=== PATIENT | male | born 1965 | race Caucasian/White ===

== ENCOUNTER 2016-10-12 14:04 | Emergency (ER) | payer MEDICAID ==
[~2016-10-12] VITALS: Ht 172.7 cm; Wt 58.0 kg
[2016-10-12 14:06] VITALS: BP 136/82
== END 2016-10-12 16:13 | disposition home or self-care (01) ==
LOC: ED 16:07
DX: S40.012A Contusion of left shoulder, initial encounter (principal); S60.212A Contusion of left wrist, initial encounter; S60.222A Contusion of left hand, initial encounter; L03.811 Cellulitis of head [any part, except face]; L03.115 Cellulitis of right lower limb; X50.1XXA Overexertion from prolonged static or awkward postures, initial encounter; Y93.89 Activity, other specified; Y92.89 Other specified places as the place of occurrence of the external cause; Y99.8 Other external cause status
CPT/HCPCS: 29125

== ENCOUNTER 2018-02-13 05:11 | Emergency (ER) | payer MEDICAID ==
[~2018-02-13] VITALS: Ht 172.7 cm; Wt 58.0 kg
[2018-02-13 05:19] VITALS: BP 105/73
[2018-02-13] MEDS ORDERED: ACETAMINOPHEN 325 MG TABLET ONE (05:56)
[2018-02-13] MEDS ORDERED: ACETAMINOPHEN 325 MG TABLET PO ONE (06:00)
== END 2018-02-13 08:20 | disposition home or self-care (01) ==
LOC: ED 07:47
DX: S43.402A Unspecified sprain of left shoulder joint, initial encounter (principal); S63.502A Unspecified sprain of left wrist, initial encounter; W01.0XXA Fall on same level from slipping, tripping and stumbling without subsequent striking against object, initial encounter; Y93.89 Activity, other specified; Y92.009 Unspecified place in unspecified non-institutional (private) residence as the place of occurrence of the external cause; Y99.8 Other external cause status
CPT/HCPCS: 29260; 99284

== ENCOUNTER 2019-08-24 12:48 | Emergency (ER) | payer MEDICAID ==
[~2019-08-24] VITALS: Ht 172.7 cm; Wt 61.4 kg
[2019-08-24 12:49] VITALS: BP 148/98
--- NOTE | 2019-08-24 13:03 | NUR ---
PT AMBULATED HERE FROM, FROM HALF-WAY. PT WITH C/O HANGNAIL AND R GREAT TOE PAIN.
== END 2019-08-24 14:03 | disposition home or self-care (01) ==
LOC: ED 13:42
DX: M79.674 Pain in right toe(s) (principal)
CPT/HCPCS: 99282

== ENCOUNTER 2019-09-02 09:21 | Emergency (ER) | payer MEDICAID ==
[~2019-09-02] VITALS: Ht 172.7 cm; Wt 61.3 kg
[2019-09-02 09:28] VITALS: BP 131/93
--- NOTE | 2019-09-02 10:19 | NUR ---
PA AT BEDSIDE PERFORMING I&D.
--- NOTE | 2019-09-02 10:32 | NUR ---
PT DC HOME IN A STABLE CONDITION. DC INSTRUCTIONS WERE DISCUSSED WITH PT. PT VERBALIZED UNDRESTANDING. NO FURTHER QUESTIONS OR CONCERNS WERE EXPRESSED AT THAT TIME. PT AMBULATED TO DC DESK WITH RN. STEADY GAIT.
== END 2019-09-02 10:34 | disposition home or self-care (01) ==
LOC: ED 10:15
DX: K08.89 Other specified disorders of teeth and supporting structures (principal); F17.210 Nicotine dependence, cigarettes, uncomplicated
CPT/HCPCS: 99283

== ENCOUNTER 2020-01-16 11:30 | Emergency (ER) | payer MEDICAID ==
[~2020-01-16] VITALS: Ht 172.7 cm; Wt 59.1 kg
[2020-01-16 11:33] VITALS: BP 120/84
[2020-01-16] MEDS ORDERED: BENZOCAINE 20% SPRAY 0.5ML TP ONE (12:30)
[2020-01-16] MEDS ORDERED: BENZOCAINE 20% SPRAY 0.5ML ONE (12:31)
== END 2020-01-16 13:46 | disposition home or self-care (01) ==
LOC: ED 13:01
DX: K04.7 Periapical abscess without sinus (principal); K08.89 Other specified disorders of teeth and supporting structures; F17.200 Nicotine dependence, unspecified, uncomplicated
CPT/HCPCS: 41800; 99283; 99284